=== PATIENT | male | born 1950 | race American Indian/Alaskan Native ===

== ENCOUNTER 2017-03-18 13:28 | Emergency (ER) | payer MEDICAID, OTHER ==
[2017-03-18 14:02] VITALS: BP 128/68; PULSE 103; RESP 16; TEMP 98.3; O2SAT 100
[2017-03-18] MEDS ORDERED: Albuterol 0.083% Inhal Sol (2.5 mg/3 mL) UD INH STA (14:22)
[2017-03-18] MEDS ORDERED: Albuterol-Ipratrop 3 mg / 0.5 (3 ml) UD ONE (14:28)
--- NOTE | 2017-03-18 14:32 | ED PDOC ---
HPI: General Adult Time Seen by Provider: 03/18/17 14:15 Chief Complaint (Nursing): Flu-like Symptoms Chief Complaint (Provider): Flu-like Symptoms History Per: Patient History/Exam Limitations: no limitations Onset/Duration Of Symptoms: Days (x4) Current Symptoms Are (Timing): Still Present Additional Complaint(s): Alexandro Cartwright is a 66 year old male with a past medical history of anxiety and depression complaining of flu-like symptoms x4 days. Patient states he was unable to follow up with PMD so he presented to ED. Confirms tactile fever, productive cough, and nasal congestion. PMD: Kristal Lemus MD Past Medical History Reviewed: Historical Data, Nursing Documentation, Vital Signs Vital Signs: Last Vital Signs Temp 98.3 F 03/18/17 13:46 Pulse 103 H 03/18/17 13:46 Resp 16 03/18/17 13:46 BP 128/68 03/18/17 13:46 Pulse Ox 100 03/21/17 13:49 - Medical History PMH: Anxiety, Depression - Family History Family History: States: No Known Family Hx - Social History Current smoker - smoking cessation education provided: Yes Alcohol: None Drugs: Denies - Home Medications Home Medications: Ambulatory Orders Medication Instructions Recorded Albuterol HFA [Ventolin HFA 90 2 puff IH [id number] PRN #1 inhaler 03/18/17 mcg/actuation (8 g)] Azithromycin [Zithromax] 1 tab PO DAILY #6 tab 03/18/17 Prednisone [Deltasone] 3 tab PO DAILY #15 tablet 03/18/17 - Allergies Allergies/Adverse Reactions: Allergies Allergy/AdvReac Type Severity Reaction Status Date / Time No Known Allergies Allergy Verified 03/18/17 13:46 Review of Systems ROS Statement: Except As Marked, All Systems Reviewed And Found Negative Constitutional: Positive for: Fever (Tactile) ENT: Positive for: Nose Congestion Respiratory: Positive for: Cough, Sputum Physical Exam - Reviewed Nursing Documentation Reviewed: Yes Vital Signs Reviewed: Yes - Physical Exam Appears: Positive for: Well, Non-toxic, No Acute Distress Head Exam: Positive for: ATRAUMATIC, NORMAL INSPECTION, NORMOCEPHALIC Skin: Positive for: Normal Color. Negative for: Rash Eye Exam: Positive for: Normal appearance ENT: Positive for: Nasal Congestion Respiratory: Positive for: Rhonchi Neurologic/Psych: Positive for: Alert, Oriented - ECG O2 Sat by Pulse Oximetry: 100 (RA) Pulse Ox Interpretation: Normal Medical Decision Making Medical Decision Making: Time: 14:22 Initial Impression: Bronchitis Plan: --X-Ray Chest 2 Views --Albuterol 0.083% 2.5 mg INH --Reevaluation Time: 14:33 X-Ray Chest Findings: LINES AND TUBES: None. LUNG AND PLEURA: The lungs are hyperinflated and there is peribronchial thickening with chronic changes in both lungs. There is severe bullous emphysema in the right upper lobe. HEART AND MEDIASTINUM: The heart is not enlarged. The hilar and mediastinal contours are within normal limits. SKELETAL STRUCTURES: The bony structures are within normal limits for the patient's age. VISUALIZED UPPER ABDOMEN: Normal. OTHER FINDINGS: None. IMPRESSION: No active pulmonary disease. COPD. Time: 14:55 --After 1x Albuterol neb patient felt improvement with symptoms. --Upon provider evaluation patient is medically stable, and requires no further treatment in the ED at this time. Patient will be discharged home with Rx for Albuterol, Zithromax, and Prednisone. Counseling was provided and all questions were answered regarding diagnosis and need for follow up with PMD. There is agreement to discharge plan. Return if symptoms persist or worsen. Scribe Attestation: Documented by Jermain Candelario, acting as a scribe for Lora Foreman PA-C Provider Scribe Attestation: All medical record entries made by the Scribe were at my direction and personally dictated by me. I have reviewed the chart and agree that the record accurately reflects my personal performance of the history, physical exam, medical decision making, and the department course for this patient. I have also personally directed, reviewed, and agree with the discharge instructions and disposition. Disposition - Clinical Impression Clinical Impression: Bronchitis - Patient ED Disposition Is Patient to be Admitted: No Counseled Patient/Family Regarding: Diagnosis, Need For Followup, Rx Given, Smoking Cessation - Disposition Referrals: [facility] [Outside] Disposition: Routine/Home Disposition Time: 14:55 Condition: FAIR Prescriptions: Albuterol HFA [Ventolin HFA 90 mcg/actuation (8 g)] 2 puff IH [id number] PRN #1 inhaler PRN Reason: Cough Azithromycin [Zithromax] 1 tab PO DAILY #6 tab Prednisone [Deltasone] 3 tab PO DAILY #15 tablet Instructions: Acute Bronchitis (ED) Forms: [employer] (Indonesian) Print Language: URDU
[2017-03-18] MEDS ORDERED: Albuterol 0.083% Inhal Sol (2.5 mg/3 mL) UD ONE (14:33)
--- NOTE | 2017-03-18 14:35 | RAD ---
HISTORY: COMPARISON: No prior. TECHNIQUE: Chest PA and lateral FINDINGS: LINES AND TUBES: None. LUNG AND PLEURA: The lungs are hyperinflated and there is peribronchial thickening with chronic changes in both lungs. There is severe bullous emphysema in the right upper lobe. HEART AND MEDIASTINUM: The heart is not enlarged. The hilar and mediastinal contours are within normal limits. SKELETAL STRUCTURES: The bony structures are within normal limits for the patient's age. VISUALIZED UPPER ABDOMEN: Normal. OTHER FINDINGS: None. IMPRESSION: No active pulmonary disease. COPD.
== END 2017-03-18 15:16 | disposition home or self-care (01) ==
LOC: H.ER 13:28
DX: J40 Bronchitis, not specified as acute or chronic (principal); F32.9 Major depressive disorder, single episode, unspecified; F41.9 Anxiety disorder, unspecified; F17.200 Nicotine dependence, unspecified, uncomplicated

== ENCOUNTER 2017-04-09 12:58 | Emergency (ER) | payer MEDICAID ==
[2017-04-09 13:30] VITALS: BP 137/82; PULSE 76; RESP 18; TEMP 98.9; O2SAT 99
--- NOTE | 2017-04-09 14:41 | ED PDOC ---
HPI: General Adult Time Seen by Provider: 04/09/17 13:48 Chief Complaint (Nursing): Cough, Cold, Congestion Chief Complaint (Provider): Cough, Cold, Congestion History Per: Patient History/Exam Limitations: no limitations Onset/Duration Of Symptoms: Other (X 2 weeks) Current Symptoms Are (Timing): Still Present Recently: Seen In ED (2 weeks ago) Additional Complaint(s): Alexandro is a 66 year old male who presents to the Emergency Department complaining of coughing. Patient states he was seen here 2 weeks ago for bronchitis and was given Cipromycin. Patient states cough is still persistent and cough is worse during the day associated with white sputum production. Denies fever, body aches, and chills. Has yet to see doctor. PMD: No Family Provider. Past Medical History Reviewed: Historical Data, Nursing Documentation, Vital Signs Vital Signs: Last Vital Signs Temp 98.9 F 04/09/17 13:28 Pulse 76 04/09/17 13:28 Resp 18 04/09/17 13:28 BP 137/82 04/09/17 13:28 Pulse Ox 99 04/09/17 15:06 - Medical History PMH: Anxiety, Depression - Surgical History Surgical History: No Surg Hx - Family History Family History: States: Unknown Family Hx - Social History Current smoker - smoking cessation education provided: Yes Alcohol: None Drugs: Denies - Home Medications Home Medications: Ambulatory Orders Medication Instructions Recorded Albuterol HFA [Ventolin HFA 90 2 puff IH [id number] PRN #1 inhaler 03/18/17 mcg/actuation (8 g)] Azithromycin [Zithromax] 1 tab PO DAILY #6 tab 03/18/17 Prednisone [Deltasone] 3 tab PO DAILY #15 tablet 03/18/17 Guaifenesin [Mucinex] 600 mg PO BID #14 tab.er.12h 04/09/17 Promethazine DM [Phenergan DM 10 ml PO BID #30 dose 04/09/17 Syrup] - Allergies Allergies/Adverse Reactions: Allergies Allergy/AdvReac Type Severity Reaction Status Date / Time No Known Allergies Allergy Verified 03/18/17 13:46 Review of Systems ROS Statement: Except As Marked, All Systems Reviewed And Found Negative Constitutional: Negative for: Fever, Chills, Other (body aches) Respiratory: Positive for: Cough, Sputum (White sputum production) Physical Exam - Reviewed Nursing Documentation Reviewed: Yes Vital Signs Reviewed: Yes - Physical Exam Appears: Positive for: Non-toxic Skin: Positive for: Normal Color Eye Exam: Positive for: Normal appearance ENT: Positive for: Normal ENT Inspection Cardiovascular/Chest: Positive for: Regular Rate, Rhythm Respiratory: Positive for: Normal Breath Sounds (Lungs clear) Neurologic/Psych: Positive for: Alert, Oriented (x 3) - ECG O2 Sat by Pulse Oximetry: 99 (RA) Pulse Ox Interpretation: Normal Medical Decision Making Medical Decision Making: Time: 14:33 Plan: Patient does not want any further examination. - Mucinex 600 mg Tab - Phenergan DM Upon provider evaluation patient is medically stable, and requires no further treatment in the ED at this time. Patient will be discharged with Rx for Mucinex and Phenergan. Counseling was provided and all questions were answered regarding diagnosis and need for follow up with PCP. There is agreement to discharge plan. Return if symptoms persist or worsen. Scribe Attestation: Documented by Brandon Govea, acting as a scribe for Inna Hernandez PA-C Provider Scribe Attestation: All medical record entries made by the Scribe were at my direction and personally dictated by me. I have reviewed the chart and agree that the record accurately reflects my personal performance of the history, physical exam, medical decision making, and the department course for this patient. I have also personally directed, reviewed, and agree with the discharge instructions and disposition. Disposition - Clinical Impression Clinical Impression: Cough, Bronchitis - Patient ED Disposition Is Patient to be Admitted: No Counseled Patient/Family Regarding: Diagnosis, Need For Followup, Rx Given - Disposition Disposition: Routine/Home Disposition Time: 17:27 Condition: STABLE Prescriptions: Guaifenesin [Mucinex] 600 mg PO BID #14 tab.er.12h Promethazine DM [Phenergan DM Syrup] 10 ml PO BID #30 dose Instructions: Acute Bronchitis (ED) Forms: [employer] (Maori) Print Language: SINHALA
== END 2017-04-09 14:39 | disposition home or self-care (01) ==
LOC: H.ER 12:58
DX: J40 Bronchitis, not specified as acute or chronic (principal); F17.200 Nicotine dependence, unspecified, uncomplicated; F32.9 Major depressive disorder, single episode, unspecified; F41.9 Anxiety disorder, unspecified

== ENCOUNTER 2017-07-05 18:55 | Emergency (ER) | payer MEDICAID ==
--- NOTE | 2017-07-05 20:15 | ED PDOC ---
HPI: Back Time Seen by Provider: 07/05/17 19:09 Chief Complaint (Nursing): Back Pain History Per: Patient History/Exam Limitations: language barrier Onset/Duration Of Symptoms: Days Current Symptoms Are (Timing): Still Present Quality Of Discomfort: Aching Pain Scale Rating Of: 6 Previous Symptoms: Back Pain Associated Symptoms: None Exacerbating Factor(s): Nothing Additional History Per: Patient Additional Complaint(s): 66 YO M with hx of emphysema, anxiety, and sig smoking hx presents to ED with Low back pain x 2 days. Pt states that two days ago he tripped and hit his low back. No trauma anywhere else, no LOC. Pt was able to stop the fall by grabbing the rails, but hit his low back and R buttock. Pt states that the pain was initially a 8/10 but over the next two days pain improved. Pt is able to ambulate and states that the pain is better with ambulation but worse with flexion of the hip and back. Today, the pain was a 6/10, pt took a medication for the pain this afternoon, but the pain did not improve and he noticed that the medication was Metformin, instead of the pain medication. The Metformin was his roommates, who had DM and a few months ago. Pt states that he started feeling sweaty, nervous and anxious after he realized that he took a diabetes medication. Pt states that he took the mediation approximately around 3 hrs ago. Denies chest pain, dyspnea, n/v/d/c. No hx of recent travels. No urinary or fecal incontinence Indemand used for translation [id number] PMH: Emphysema SurgH: denies FH: denies SH: lives in at apt by himself. 55+pack year hx, currently smokes 1/2 pack a day. ETOH occasionally. Denies illicit drug use Allergies: NKDA Meds: Denies Past Medical History Vital Signs: Last Vital Signs Temp 98.1 F 07/05/17 18:59 Pulse 128 H 07/05/17 18:59 Resp 20 07/05/17 18:59 BP 147/101 H 07/05/17 18:59 Pulse Ox 96 07/05/17 18:59 - Medical History PMH: Anxiety, Depression, Emphysema - Surgical History Surgical History: No Surg Hx - Family History Family History: States: No Known Family Hx - Living Arrangements Living Arrangements: Alone - Social History Current smoker - smoking cessation education provided: Yes (1/2 pack a day ) Alcohol: Occasional Drugs: Denies - Home Medications Home Medications: Ambulatory Orders Medication Instructions Recorded Albuterol HFA [Ventolin HFA 90 2 puff IH [id number] PRN #1 inhaler 03/18/17 mcg/actuation (8 g)] Azithromycin [Zithromax] 1 tab PO DAILY #6 tab 03/18/17 Prednisone [Deltasone] 3 tab PO DAILY #15 tablet 03/18/17 Guaifenesin [Mucinex] 600 mg PO BID #14 tab.er.12h 04/09/17 Promethazine DM [Phenergan DM 10 ml PO BID #30 dose 04/09/17 Syrup] Naproxen [Naprosyn] 500 mg PO BID PRN #15 tablet 07/05/17 - Allergies Allergies/Adverse Reactions: Allergies Allergy/AdvReac Type Severity Reaction Status Date / Time No Known Allergies Allergy Verified 07/05/17 18:58 Review of Systems Constitutional: Positive for: Sweats. Negative for: Fever, Chills Eyes: Negative for: Vision Change Cardiovascular: Positive for: Palpitations. Negative for: Chest Pain, Light Headedness Respiratory: Negative for: Shortness of Breath Gastrointestinal: Negative for: Nausea, Vomiting Genitourinary Male: Positive for: Other (No urinary or fecal incontinence ). Negative for: Incontinence Musculoskeletal: Positive for: Back Pain (R low back and R hip pain ) Neurological: Negative for: Weakness, Numbness Psych: Positive for: Anxiety Physical Exam - Reviewed Nursing Documentation Reviewed: Yes Vital Signs Reviewed: Yes (Tachycardia, hypertensive ) - Physical Exam Appears: Positive for: Well (Looks anxious ) Head Exam: Positive for: ATRAUMATIC, NORMOCEPHALIC Skin: Positive for: Normal Color Eye Exam: Positive for: Normal appearance, EOMI Neck: Positive for: Normal Cardiovascular/Chest: Positive for: Regular Rate, Rhythm, Tachycardia. Negative for: Murmur Respiratory: Positive for: Normal Breath Sounds. Negative for: Crackles, Rales , Rhonchi, Wheezing Gastrointestinal/Abdominal: Positive for: Bowel Sounds, Soft. Negative for: Tenderness Back: Positive for: Normal Inspection (Mild R ). Negative for: Vertebral Tenderness Extremity: Positive for: Normal ROM. Negative for: Tenderness, Pedal Edema, Calf Tenderness Neurologic/Psych: Positive for: Alert, Oriented, Gait - Laboratory Results Result Diagrams: 07/05/17 22:12 07/05/17 22:12 - ECG ECG: Positive for: Interpreted By Me Interpretation Of ECG: Sinus Tahcycardia with a rate of 113, and no acute ST changes. O2 Sat by Pulse Oximetry: 96 - Progress ED Course And Treament: 66 YO M with new onset Low back/R hip pain, tachycardia and elevated BP after 1 dose of Metformin ingestion in error. Tachycardia and elevated BP likely 2/2 to anxiety and pain. --cbc --cmp --tyenol for pain --EKG --FSG --XR of lumbar spine --XR of R hip and pelvis FSG was 100, pt states that he feels better after the Tylenol. EKG was sig for sinus tachycardia with rate of 113, no acute ST changes noted. XR of the lumbar spine and R hip and pelvis is appreciated. No fractures noted, spine is aligned, age related bone changes. Tachycardia is improving, with a rate of 105, and pt states that his anxiety is improving. Administer 1L IVF and reassess. Pt is seen and re-examined, he feels better and would like to go home. Pt HR is improved to 90-93's on monitor. Blood work appreciated and reviewed with pt. Pain resolved after Tylenol. Will d/c pt home with follow up with [facility], and rx for Naproxen for pain. Disposition - Clinical Impression Clinical Impression: Low back pain, Accidental drug ingestion - Disposition Referrals: [facility] [Outside] [facility] [Outside] Disposition Time: 23:27 Condition: STABLE Prescriptions: Naproxen [Naprosyn] 500 mg PO BID PRN #15 tablet PRN Reason: Pain, Moderate (4-7) Instructions: Low Back Pain in Adults, Metformin Forms: [employer] (French) Print Language: EQUATORIAL GUINEAN
[2017-07-05 20:31] VITALS: TEMP 98
[2017-07-05] MEDS ORDERED: Sodium Chloride 0.9% 1,000 ML IV SCH (20:45)
[2017-07-05 22:32] LABS: BASO % 0.5 % (0.0-2.0); EOS # 0.1 K/uL (0.0-0.7); EOS % 0.7 % (0.0-4.0); HEMOGLOBIN 14.6 g/dL (12.0-18.0); LYMPH # 1.1 K/uL (1.0-4.3); LYMPH % 13.1 % (20.0-40.0); MEAN CORPUSCULAR HEMOGLOBIN 32.9 pg (27.0-31.0); MEAN CORPUSCULAR HGB CONC 33.9 g/dL (33.0-37.0); MEAN PLATELET VOLUME 7.3 fl (7.2-11.7); MONO # 0.3 K/uL (0.0-0.8); MONO % 4.1 % (0.0-10.0); NEUT # 6.7 K/uL (1.8-7.0); NEUT % 81.6 % (50.0-75.0); RBC 4.44 Mil/uL (4.40-5.90); RED CELL DISTRIBUTION WIDTH 15.1 % (11.5-14.5); WHITE BLOOD COUNT 8.2 K/uL (4.8-10.8)
[2017-07-05 22:40] LABS: ALB/GLOB RATIO 1.1 (1.0-2.1); ALBUMIN 3.3 g/dL (3.5-5.0); ALT/SGPT 28 U/L (21-72); AST/SGOT 22 U/L (17-59); BLOOD UREA NITROGEN 11 mg/dl (9-20); CALCIUM 8.2 mg/dL (8.4-10.2); GFR AFRICAN-AMERICAN > 60; GFR NON-AFRICAN AMERICAN > 60
[2017-07-05 23:17] VITALS: BP 150/70; PULSE 93; RESP 17
[2017-07-05 23:26] VITALS: O2SAT 96
--- NOTE | 2017-07-06 12:07 | RAD ---
PROCEDURE: Right Hip Radiographs. The the the HISTORY: back pain COMPARISON: None. FINDINGS: BONES: No evidence of acute displaced fracture nor dislocation. . Both femoral heads are appropriately located within their respective acetabula. JOINTS: Mild degenerative changes both hip joints. Mild degenerative changes lumbosacral spine SOFT TISSUES: Springlike density seen overlying the left hip joint. OTHER FINDINGS: None. IMPRESSION: No evidence of acute displaced fracture nor dislocation. Mild DJD. If symptoms persist consider followup CT scan or MRI
--- NOTE | 2017-07-06 12:09 | RAD ---
PROCEDURE: Radiographs of the Lumbar Spine. HISTORY: low back pain COMPARISON: Comparison made with prior study dated 07/03/2012 FINDINGS: BONES: No acute compression fractures nor retropulsed fragments. Minor chronic anterior stature loss of T11, T12 and L1 segments. Remaining vertebral bodies otherwise exhibit normal stature. . There is straightening of the normal lumbar lordosis however vertebral bodies otherwise exhibit normal alignment. Facets normally aligned. DISC SPACES: Disc space heights relatively maintained. Small marginal anterolateral osteophyte formation noted at several levels. OTHER FINDINGS: None. IMPRESSION: Minor chronic anterior stature loss of T11, T12 and L1 segments. Minor multilevel degenerative spondylosis.
== END 2017-07-05 23:24 | disposition home or self-care (01) ==
LOC: H.ER 18:55
DX: M54.5 Low back pain (principal); Z03.6 Encounter for observation for suspected toxic effect from ingested substance ruled out; F32.9 Major depressive disorder, single episode, unspecified; F41.9 Anxiety disorder, unspecified; F17.210 Nicotine dependence, cigarettes, uncomplicated; J43.9 Emphysema, unspecified; R00.0 Tachycardia, unspecified
CPT/HCPCS: 72100; 73501; 80053; 82948; 85025; 99283; J7040

== ENCOUNTER 2018-01-06 20:05 | Emergency (ER) | payer MEDICAID ==
[2018-01-06 20:10] VITALS: RESP 18; TEMP 98.7; O2SAT 100
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
[2018-01-06 21:01] VITALS: BP 148/92; PULSE 90
== END 2018-01-06 20:57 | disposition left against medical advice (07) ==
LOC: H.ER 20:05
DX: F10.10 Alcohol abuse, uncomplicated (principal); Z86.59 Personal history of other mental and behavioral disorders; J43.9 Emphysema, unspecified